=== PATIENT | female | born 1985 | race Caucasian/White ===

== ENCOUNTER → 2018-07-17 14:35 | Outpatient (CLI) | payer OTHER, SELFPAY ==
[2018-07-21 13:09] LABS: HPV Reflexed? NOT INDICATED
== END ==
PROVIDERS: Visit Provider Obstetrics & Gynecology
DX: Z12.4 Encounter for screening for malignant neoplasm of cervix (principal)
CPT/HCPCS: 88175; G0145

== ENCOUNTER 2019-02-05 08:56 | Day surgery (SDC) | payer OTHER, SELFPAY ==
--- NOTE | 2019-01-04 03:19 | HP_ITS ---
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 Is patient in pain?: No Allergies No Known Allergies Allergy (Unverified 01/04/19 15:00) Medications spironolactone 25 mg tablet 25 mg PO DAILY 01/04/19 [History Confirmed 01/04/19] PFSH Medical History Acne (Acute) Cholelithiasis (Acute) Surgical History history wart removal right foot (Acute) Family History Mother Breast cancer Cancer skin cancer Father Cancer prostate cancer Grandfather Diabetes Grandmother Diabetes Social History (Updated 01/04/19 @ 15:20 by Omar Iverson MD) Smoking Status: Never smoker alcohol intake: current alcohol intake frequency: a few times a month substance use type: does not use HPI HPI HPI: XOCHITL CLARK, is a 33 F who presents to the office today for HPI HPI Surgical H&P: Yes HPI: XOCHITL CLARK, is a 33 F who presents to the office today for Evaluation of symptomatic cholelithiasis. Patient has been experiencing right upper mid back pain for probably the last 4 months. She describes it as colicky in nature. She states that fatty foods particularly thick cheeses or pepperoni will induce this. In addition she is also been complaining of some nausea and bloating. She does not have epigastric discomfort or particularly normal right upper quadrant abdominal pain.She has had a gallbladder ultrasound which has shown shadowing gallstones the largest measuring 1.6 cm. In addition the gallbladder wall is 3 mm thick. The common bile duct measured 3 mm. She had no fevers or chills she has had some liver function test but at the time that I am seeing her today I do not have these available to me. ROS General General: No weight change, appetite, fatigue, colon cancer, breast cancer or weakness HEENT HEENT: No difficulty swallowing, eye injury, eye surgery, swollen glands or hoarseness Endo Endocrine: No thyroid disease, diabetes mellitus, thyroid cancer, Hair loss, heat intolerance or cold intolerance Skin Skin: No rash or changing moles Breast Breast: No left breast lump, right breast lump, nipple discharge, breast pain, abnormal mammogram, abnormal US or breast enlargement Musc Musculoskeletal: No back problems, arthritis, rheumatoid arthritis, gout or joint pain Cardio Cardiovascular: No murmur, pacemaker, heart disease, atrial fibrillation, high blood pressure, heart attack, heart stent, palpitations, shortness of breat with exertion or chest pain Psych Psychiatric: No depression, anxiety or hearing voices Resp Respiratory: No shortness of breath, No sleep apnea, No cough, No COPD, No asthma, No emphysema, No wheezing Gastro Gastrointestinal: Yes abdominal pain, Yes nausea or vomiting, No diarrhea, No constipation, No blood in stool, No acid reflux, No hemorrhoids, No ulcers, Yes gallbladder problem, No black,tarry stools Marcelo Hematologic: No blood thinners, No blood disorders, No bleeding, No anemia, No blood clots Neuro Neurologic: No system reviewed and no additional complaints, except as docu, No as per HPI, No abnormal walking, No abnormal hearing, No abnormal movements, No abnormal speech, No behavioral changes, No burning sensations, No confusion, No seizure-like activity, No unsteadiness, No dizziness, No localized weakness, No frequent falls, No headache(s), No lack of coordination, No loss of vision, No memory loss, No numbness, No other visual disturbances, No radiating pain, No restless legs, No sensory deficit, No fainting, No tingling, No tremor(s), No weakness, No other Exam Const General: no acute distress, well developed, well hydrated Orientation: oriented to person, oriented to place, oriented to time [facility] Head: normocephalic, atraumatic Ears: external ears normal Mouth: moist mucous membranes Eyes Sclera: sclerae normal Pupils: normal by confrontation Neck Neck: no lymphadenopathy noted Neck mass: No Thyroid: thyroid normal, symmetrical Chest Chest palpation & inspection: normal inspection of the chest Breast Palpation: No nipple discharge Resp Effort & Inspection: normal respiratory effort Auscultation: clear to auscultation bilaterally Percussion: percussion normal Cardio Rate: regular rate Rhythm: regular rhythm Heart Sounds: no murmurs GI Palpation: soft, no hepatosplenomegaly, no masses, tender Auscultation: normal bowel sounds Rectal Exam: other Other: Rectal exam deferred. Extrem General: normal to inspection, no clubbing, cyanosis or edema Assessment & Plan Problems 1. Calculus of gallbladder with chronic cholecystitis without obstruction K80.10 Plan Reviewed the anatomy with the patient and discussed the procedure: Robotic assisted laparoscopic cholecystectomy with possible cholangiograms, possible open. Review risks including but not limited to bleeding, infection, hernia, bile leak, retained gallstones requiring another procedure ERCP- Endoscopic Retrograde Cholangiopancreatography, injury to another organ (bile ducts, common bile duct, small bowel, etc.) and conversion to an open procedure. All questions were answered. Coding Level of Care Code Off vis,new,level 3 Diagnoses Calculus of gallbladder with chronic cholecystitis without obstruction K80.10 ??Cholelithiasis location: gallbladder ??Cholecystitis acuity: chronic 01/04/19 1520 <Electronically signed by Omar finney MD> Date _ Omar Iverson MD I have re-examined the patient. There are no clinical changes since date of exam.
[2019-01-04 14:59] VITALS: BMI 21.4
[2019-02-05] VITALS (7 sets, daily range): BP systolic 101–111; BP diastolic 69–81; PULSE 72–102; RESP 16; TEMP 36.8–37.3; O2SAT 97–100; BMI 20.9
--- NOTE | 2019-02-05 09:16 | EKG12_ITS ---
Test Reason : PREOP Blood Pressure : / mmHG Vent. Rate : 090 BPM Atrial Rate : 090 BPM P-R Int : 116 ms QRS Dur : 090 ms QT Int : 368 ms P-R-T Axes : 065 054 060 degrees QTc Int : 450 ms Normal sinus rhythm Normal ECG Confirmed by KETURAH MARQUIS, JOSE ([id number]), video editor JOSE RAFAEL ROBERTSON ([id number]) on 02/07/2019 2:35:23 PM Referred By: Omar Iverson Confirmed By:JOSE REBOLLAR MD
[2019-02-05 09:24] LABS: Internal QC Validated? YES +Cl - CLEAR BKGD; Pregnancy, Urine Negative Negative
[2019-02-05] MEDS: Lactated Ringers 1,000 ML 100 ML IV ×2 (10:16→12:48)
[2019-02-05] MEDS: Cefazolin 2 GM in 0.9% Normal Saline 100 ML IV (10:59)
--- NOTE | 2019-02-05 11:00 | GALL_PTH ---
PATIENT: XOCHITL CLARK LOC: [facility] U#:[id number] AGE/SX: 33/F ROOM: RE02/05/[address]: Dr. Omar Iverson MD : [id number] BED: DIS: 02/05/2019 SPEC #: [id number] RECD: 02/05/19 15:53 STATUS: BLAISE RERossi #: [id number] KEYLA: 02/05/19 11:[address]: Omar Iverson DEPT: SURGICAL PATHOLOGY RECD BY: Stevo Saab ENTERED: 02/06/19 08:22 SP TYPE: [facility] SOTELO DR: Uma Brandon PA-C Tissues: Gallbladder, NOS Procedures: Surgery Specimen Level III HEADER OPERATION: Robotic laparoscopic cholecystectomy PRE-OP DIAGNOSIS: Calculus of gallbladder with chronic cholecystitis TISSUE SUBMITTED: Gallbladder MICROSCOPIC DIAGNOSIS Gallbladder, cholecystectomy: Cholesterolosis, chronic cholecystitis and cholelithiasis. AM:meeta 02/07/19 MICROSCOPIC DESCRIPTION Slides are reviewed. GROSS DESCRIPTION Received is one container labeled with the patient's name and designated gallbladder. The specimen consists of a gallbladder measuring 7 cm in length and up to 2.5 cm in diameter. The external surface is pink-barriga, smooth and glistening for the most part. Focally it is granular, hemorrhagic and contains cautery artifact. The gallbladder contains green-yellow mucid bile and multiple mulberry orange-brown stones and stone fragments measuring in aggregate 4 x 3 x 1 cm and 0.1 to 1.5 cm in greatest dimension. Some of the stones are also present in the cystic duct. The mucosa is bile-stained and without any mass lesions. The gallbladder wall measures up to 0.2 cm in thickness. Pulp Press Tender sections from the gallbladder and the cystic duct are submitted in one cassette. / SJ:meeta 02/06/19 TC:3 CPT: 36741
[2019-02-05] MEDS: Bupivacaine Mpf 0.5% 30 ML VIAL (11:50)
--- NOTE | 2019-02-05 11:53 | PCM.DC.GB ---
Discharge Diet: Light diet - advance as tolerated Discharge Activity: May Not Drive - for 2-3 days or while taking narcotic pain medications., - - Do not drive, work heavy equipment or sign legal documents for 24 hours. May shower in (days): 1 - with the bandage in place. Additional Activity Instructions:: Pain medication may cause nausea. You should typically eat light foods as you take your pain medications. Pain medication may also cause constipation. If this is a problem for you, please discuss with your doctor. Call your doctor if your incision/area has: Continuous Slow Oozing, Sudden Increased Bleeding, Increased Pain/ Swelling, Increased Redness, Foul Smelling Discharge Call your doctor if you observe: Fever of 101 or Higher Suture Line Care: Avoid Pulling/Pushing, Avoid Pinching/Bending Additional Dressing/Incision Instructions:: Leave operative bandaids on for 2 days. When you remove dressing, leave Steri-Strips on until your follow-up appointment, or until the Steri-Strips fall off on their own. Allergies/Adverse Reactions: Allergies No Known Allergies Allergy (Unverified 01/29/19 15:12) Medications to take at Discharge spironolactone 25 mg tablet 25 mg PO DAILY 01/04/19 Norethindrone-Ethinyl Estrad [Pirmella] 1 ea PO DAILY 01/29/19 Oxycodone HCl/Acetaminophen [Percocet 5/325] 1 - 2 tablet PO Q4H PRN PRN 7 Days #30 tablet 02/05/19 The following prescriptions were given: Oxycodone HCl/Acetaminophen [Percocet 5/325] 1 - 2 tablet PO Q4H PRN PRN 7 Days #30 tablet PRN Reason: Pain Transmission Status: Sent to [id number] Primary Care Physician: Uma Brandon PA-C [Primary Care Provider] - Test Results: Test results from this visit will be discussed in further detail at your follow-up appointment, if applicable. Please Follow Up With: Omar Iverson MD - Please call [phone] to schedule an appointment. When: 7 days after your surgery.
--- NOTE | 2019-02-05 11:54 | PCM.OPRPT ---
Problem List (1) Calculus of gallbladder with chronic cholecystitis without obstruction Status: Chronic Report of Operation Date of Procedure: 02/05/19 Pre-Operative Diagnosis: Chronic cholecystitis with cholelithiasis Post-Operative Diagnosis: Same Surgery/Procedure Performed:: Robotic assisted laparoscopic cholecystectomy Type of Anesthesia:: General Anesthesiologist: Rob Cerna Specimen's removed: Gallbladder Estimated Blood Loss (mL): < 25 cc Fluids Replaced: 550 CC LR Description of Procedure: Patient was brought into the operating room. Placed in the supine position. Under excellent general trach intubation bed was turned tangentially placed at a 45 degree angle then sterilely prepped and draped in usual fashion. Local was injected infra umbilically dissection was carried down to the fascia the fascia grasped with Leonard varies needle was placed inside the abdomen the abdomen was insufflated to 15 torr. A 10/12 trocar was placed without difficulty. It was flank by 2 #8 trochars and then further laterally a #5 trocar was placed. All of these under direct visualization without injury to underlying structures. Robot was docked. Moderate amount of adhesions were taken down off of the gallbladder itself. Fundus was grasped and retracted in a cephalad direction. I dissected out the cystic duct with the use of right hook I dissected the cystic artery as well as posterior to this to the abdomen. Once I had the cystic duct and cystic artery completely dissected free hemoclips were placed on the duct and the duct was ligated in similar fashion the Humalog were placed on the artery and the artery was ligated. I deliver the gallbladder from gallbladder bed with use of electrocautery had no spillage of bile or stones. Placed a specimen a specimen bag delivered through the umbilical port without difficulty. Electrocautery was used for good hemostasis in the base trochars were removed under direct visualization good hemostasis was noted. Fascia the umbilical port was closed with a [id number] stitch of 0 Vicryl. Skin incisions were closed with some particular stitches of 4-0 Monocryl. Steri-Strips were applied. Sterile dressings were applied. Patient tolerated the procedure well. - Admit VTE Documentation VTE Present on Admission: No VTE Mechan Device Prophylaxis: SCD's VTE Pharm Prophylaxis ordered?: No Reason prophylaxis not ordered:: Treatment Not Indicated
== END 2019-02-05 15:54 | disposition home or self-care (01) ==
LOC: SDC 08:57 → AC 09:01
PROVIDERS: Anesthesiology; Family Provider Family Medicine; PCP Family Medicine; Referring Provider Surgery; Visit Provider Surgery
PROC: 0FT44ZZ Resection of Gallbladder, Percutaneous Endoscopic Approach (ICD-10-PCS; CPT 47562; principal; 2019-02-05 10:40)
DX: K80.10 Calculus of gallbladder with chronic cholecystitis without obstruction (principal)
CPT/HCPCS: 00790; 47562; S2900; 81025; 88304; 93005; J7120; J2405

== ENCOUNTER → 2021-09-08 | Outpatient (CLI) | payer OTHER, SELFPAY ==
[2021-09-11 13:18] LABS: HPV APTIMA, High Risk Negative (Negative)
== END | disposition home or self-care (01) ==
LOC: LABSPEC 14:04
PROVIDERS: PCP Family Medicine; Visit Provider Obstetrics & Gynecology
DX: Z12.4 Encounter for screening for malignant neoplasm of cervix (principal)
CPT/HCPCS: 87624; 88175; G0145